=== PATIENT | male | born 1930 | race African-American/Black ===

== ENCOUNTER 2018-12-12 07:25 | Inpatient (IN) | payer MEDICARE ==
[~2018-12-12] VITALS: Ht 175.3 cm; Wt 73.5 kg
[2018-12-12] VITALS (7 sets, daily range): BP systolic 111–140; BP diastolic 56–66
[~2018-12-12 07:25] MED LIST: CLOP75TA16; ESOM40VI; FERR-35; [UNRECOGNIZED DRUG - CODE]
[2018-12-12 08:22] LABS: BASOPHILS % 0.7 % (0.0-2.0); EOSINOPHILS % 2.1 % (0.0-5.0); HEMATOCRIT. 30.4 % (42.0-52.0); HEMOGLOBIN. 10.1 g/dL (14.0-18.0); MEAN CORPUSCULAR HEMOGLOBIN 30.6 pg (28.0-32.0); MEAN CORPUSCULAR VOLUME 92.5 fL (80.0-94.0); MEAN PLATELET VOLUME 8.2 fl (7.4-10.4); MONOCYTES % 7.4 % (2.0-8.0); NEUTROPHILS % 64.8 % (40.0-76.0); PLATELET 233 x1000/uL (130-400); RED BLOOD CELL COUNT 3.29 mill/uL (4.7-6.1); RED CELL DISTRIBUTION WIDTH 14.5 % (11.6-14.6)
[2018-12-12 08:28] LABS: CHLORIDE 108 mEq/L (98-107)
[2018-12-12] MEDS ORDERED: MAGNESIUM CITRATE 300ML SOLUTION PO ONE (08:45)
[2018-12-12] MEDS ORDERED: ASPIRIN 325MG EC TABLET PO ONE (09:15)
[2018-12-12] MEDS ORDERED: SODIUM CHLORIDE 0.45% 1,000 ML IV ONE (09:45)
[2018-12-12] MEDS ORDERED: LIDOCAINE HCL 1% 20ML VIAL (Pyxis) INJ ONE (11:34)
[2018-12-12] MEDS ORDERED: IODIXANOL 320MG/ML 100 ML BOTTLE IV ONE (11:34)
[2018-12-12] MEDS ORDERED: FENTANYL CITRATE/PF 50MCG/ML 2ML VIAL ONE (11:42)
[2018-12-12] MEDS ORDERED: MIDAZOLAM HCL 2 MG/2 ML VIAL ONE (11:42)
[2018-12-12] MEDS ORDERED: ATROPINE SULFATE 1MG/10ML SYR IV PRN (12:30)
[2018-12-12] MEDS ORDERED: ACETAMINOPHEN 325MG TABLET PO PRN ×2 (12:30→17:00)
[2018-12-12] MEDS ORDERED: ONDANSETRON HCL 4MG/2ML INJ IV PRN ×2 (12:30→17:00)
[2018-12-12] MEDS ORDERED: HEPARIN SODIUM 1,000 UNIT/1ML VIAL IV ONE (14:10)
[2018-12-12] MEDS ORDERED: NICARDIPINE 100MCG/ML 10ML VIAL (CATH LAB) IV ONE (14:15)
[2018-12-12] MEDS ORDERED: NITROGLYCERIN 50MCG/ML 10ML VIAL (CATH LAB) IV ONE (14:15)
[2018-12-12] MEDS: DEXT 5%/0.45% NACL 1000ML 1,000 ML IV SCH (16:46)
[2018-12-12] MEDS ORDERED: NA PHOS,M-B/NA PHOS,DI-BA ENEMA 118ML PR PRN (17:00)
[2018-12-12] MEDS ORDERED: DOCUSATE SODIUM 100MG CAPSULE PO PRN (17:00)
[2018-12-12] MEDS ORDERED: MAGNESIUM/ALUMINUM HYDROXIDE/SIMETHICONE 30ML UDC PO PRN (17:00)
[2018-12-12] MEDS ORDERED: LACTULOSE 20G/30ML UDC PO PRN (17:00)
[2018-12-12] MEDS ORDERED: CLONIDINE 0.1MG TABLET PO PRN (17:00)
[2018-12-12] MEDS: MULTIVITAMINS,THER W-MINERALS TABLET PO SCH (18:23)
[2018-12-12] MEDS ORDERED: SORBITOL 70% SOLN 30ML PO NR (18:45)
[2018-12-12] MEDS ORDERED: BISACODYL 10MG SUPP PR NR (18:45)
[2018-12-13] VITALS: BP 114/57
[2018-12-13 02:00] VITALS: BP 131/58
[2018-12-13] MEDS ORDERED: METO25TA6 MT (02:50)
[2018-12-13 04:00] VITALS: BP 114/55
[2018-12-13 06:00] VITALS: BP 124/56
[2018-12-13 07:04] LABS: BASOPHILS % 0.2 % (0.0-2.0); EOSINOPHILS % 1.1 % (0.0-5.0); HEMATOCRIT. 32.2 % (42.0-52.0); HEMOGLOBIN. 10.8 g/dL (14.0-18.0); LYMPHOCYTES % 15.5 % (20.0-50.0); MEAN CORPUSCULAR HEMOGLOBIN 31.2 pg (28.0-32.0); MEAN CORPUSCULAR VOLUME 92.6 fL (80.0-94.0); MEAN PLATELET VOLUME 7.7 fl (7.4-10.4); MONOCYTES % 6.3 % (2.0-8.0); NEUTROPHILS % 76.9 % (40.0-76.0); PLATELET 216 x1000/uL (130-400); RED BLOOD CELL COUNT 3.48 mill/uL (4.7-6.1); RED CELL DISTRIBUTION WIDTH 14.3 % (11.6-14.6)
[2018-12-13] MEDS: DEXT 5%/0.45% NACL 1000ML 1,000 ML IV SCH (07:09)
[2018-12-13 07:46] LABS: CHLORIDE 110 mEq/L (98-107)
[2018-12-13] MEDS: MULTIVITAMINS,THER W-MINERALS TABLET PO SCH (07:48)
[2018-12-13] MEDS ORDERED: ASPIRIN 325MG TABLET PO SCH (09:00)
[2018-12-13 10:50] VITALS: BP 124/56
== END 2018-12-13 13:16 | disposition home health service (06) | DRG 287 ==
LOC: ER 07:49 → 3WST 09:01 → EDBEDREQ 09:04
PROVIDERS: ADMIT Hospitalist; ATTEND Hospitalist
PROC: 4A023N7 Measurement of Cardiac Sampling and Pressure, Left Heart, Percutaneous Approach (ICD-10-PCS; principal; 2018-12-12)
PROC: B2111ZZ Fluoroscopy of Multiple Coronary Arteries using Low Osmolar Contrast (ICD-10-PCS; 2018-12-12)
PROC: B2151ZZ Fluoroscopy of Left Heart using Low Osmolar Contrast (ICD-10-PCS; 2018-12-12)
DX: I25.110 Atherosclerotic heart disease of native coronary artery with unstable angina pectoris (principal); E87.0 Hyperosmolality and hypernatremia; I69.354 Hemiplegia and hemiparesis following cerebral infarction affecting left non-dominant side; R07.89 Other chest pain; D63.8 Anemia in other chronic diseases classified elsewhere; F03.90 Unspecified dementia, unspecified severity, without behavioral disturbance, psychotic disturbance, mood disturbance, and anxiety; I10 Essential (primary) hypertension; K56.41 Fecal impaction; I25.2 Old myocardial infarction; I69.320 Aphasia following cerebral infarction
CPT/HCPCS: 36415; 71045; 74018; 74176; 80048; 83880; 84484; 93005; 93306; 93458; 93970; 97162; 99285; C1769; C1893; J1644; J2250; J3010; J3490; Q9967

== ENCOUNTER 2019-09-06 12:53 | Emergency (ER) | payer MEDICARE ==
[~2019-09-06] VITALS: Ht 175.3 cm; Wt 77.0 kg
[~2019-09-06 12:53] MED LIST changes: +ASPI-1158 PO; -CLOP75TA16; +CLOP75TA4; +METO25TA6 MT
[2019-09-06] MEDS: SODIUM CHLORIDE 0.9% 1,000 ML IV ONE (13:23)
[2019-09-06 14:58] LABS: CHLORIDE 111 mEq/L (98-107)
[2019-09-06 15:00] LABS: PARTIAL THROMBOPLASTIN TIME 26.6 sec (23.4-31.0); PROTHROMBIN TIME 10.6 sec (9.6-11.0)
[2019-09-06 15:02] LABS: BASOPHILS % 0.5 % (0.0-2.0); EOSINOPHILS % 1.8 % (0.0-5.0); HEMOGLOBIN. 10.7 g/dL (14.0-18.0); LYMPHOCYTES % 28.6 % (20.0-50.0); MEAN CORPUSCULAR HEMOGLOBIN 30.6 pg (28.0-32.0); MEAN CORPUSCULAR VOLUME 91.5 fL (80.0-94.0); MEAN PLATELET VOLUME 7.3 fl (7.4-10.4); MONOCYTES % 8.8 % (2.0-8.0); NEUTROPHILS % 60.3 % (40.0-76.0); PLATELET 208 x1000/uL (130-400); RED BLOOD CELL COUNT 3.49 mill/uL (4.7-6.1); RED CELL DISTRIBUTION WIDTH 13.9 % (11.6-14.6)
[2019-09-06 16:35] VITALS: BP 132/74
== END 2019-09-06 16:39 | disposition home or self-care (01) ==
LOC: ER 13:34
DX: T85.698A Other mechanical complication of other specified internal prosthetic devices, implants and grafts, initial encounter (principal); X58.XXXA Exposure to other specified factors, initial encounter; I48.91 Unspecified atrial fibrillation; F03.90 Unspecified dementia, unspecified severity, without behavioral disturbance, psychotic disturbance, mood disturbance, and anxiety; I10 Essential (primary) hypertension; Z86.73 Personal history of transient ischemic attack (TIA), and cerebral infarction without residual deficits; Z98.890 Other specified postprocedural states; Z79.82 Long term (current) use of aspirin; Z79.899 Other long term (current) drug therapy
CPT/HCPCS: 36415; 71045; 80053; 83735; 83880; 84484; 85025; 85610; 85730; 93005; 99284; J7030

== ENCOUNTER 2019-11-13 05:59 | Inpatient (IN) | payer MEDICARE ==
[~2019-11-13] VITALS: Ht 172.7 cm; Wt 72.1 kg
[2019-11-13 06:47] LABS: BASOPHILS % 0.5 % (0.0-2.0); EOSINOPHILS % 0.2 % (0.0-5.0); HEMATOCRIT. 30.6 % (42.0-52.0); HEMOGLOBIN. 10.3 g/dL (14.0-18.0); MEAN CORPUSCULAR VOLUME 92.1 fL (80.0-94.0); MEAN PLATELET VOLUME 8.3 fl (7.4-10.4); MONOCYTES % 6.3 % (2.0-8.0); PLATELET 240 x1000/uL (130-400); RED BLOOD CELL COUNT 3.32 mill/uL (4.7-6.1); RED CELL DISTRIBUTION WIDTH 14.8 % (11.6-14.6)
[2019-11-13 06:52] LABS: PROTHROMBIN TIME 10.6 sec (9.6-11.0)
[2019-11-13 06:53] LABS: CHLORIDE 108 mEq/L (98-107)
[2019-11-13 06:59] LABS: ETHANOL BLOOD < 10 mg/dL
[2019-11-13 07:01] LABS: LDL CHOLESTEROL 93 mg/dL (5-100)
[2019-11-13] MEDS ORDERED: ASPIRIN 81MG TABLET PO ONE (07:15)
[2019-11-13] MEDS ORDERED: ONDANSETRON HCL 4MG/2ML INJ IV PRN (13:45)
[2019-11-13] MEDS ORDERED: ACETAMINOPHEN 325MG TABLET PO PRN (13:45)
[2019-11-13 14:41] LABS: CLARITY URINE CLEAR (CLEAR); COLOR URINE YELLOW (YELLOW); KETONES URINE NEGATIVE (NEGATIVE); LEUKOCYTE ESTERASE URINE NEGATIVE (NEGATIVE); NITRITE URINE NEGATIVE (NEGATIVE); OCCULT BLOOD URINE NEGATIVE (NEGATIVE); PROTEIN URINE NEGATIVE (NEGATIVE); UROBILINOGEN URINE 0.2 E.U./dL (0.2-1.0)
[2019-11-13 14:49] LABS: *AMPHETAMINES SCREEN URINE NEGATIVE (NEGATIVE); *BARBITURATES SCREEN URINE NEGATIVE (NEGATIVE); *BENZODIAZEPINES SCREEN URINE NEGATIVE (NEGATIVE); *COCAINE SCREEN URINE NEGATIVE (NEGATIVE); METHADONE URINE SCREEN NEGATIVE (NEGATIVE)
[2019-11-13 14:50] LABS: CANNABINOID URINE SCREEN NEGATIVE (NEGATIVE); OPIATES URINE SCREEN NEGATIVE (NEGATIVE); PHENCYCLIDINE URINE SCREEN NEGATIVE (NEGATIVE)
[2019-11-13 15:45] LABS: FOLIC ACID (FOLATE) SERUM 14.8 ng/mL (>5.38); T4 FREE 0.88 ng/dL (0.76-1.46)
[2019-11-13 17:00] VITALS: BP 110/73
[2019-11-13 17:09] VITALS: BP 139/37
[2019-11-13 20:00] VITALS: BP 119/57
[2019-11-13] MEDS: ATORVASTATIN CALCIUM 10MG TABLET PO SCH (20:46)
[2019-11-13] MEDS: HEPARIN 5000 UNITS/ML VIAL SUBCUT SCH (20:46)
[2019-11-13 22:00] VITALS: BP 121/58
[2019-11-14] VITALS (12 sets, daily range): BP systolic 91–128; BP diastolic 29–73
[2019-11-14 07:24] LABS: CHLORIDE 106 mEq/L (98-107)
[2019-11-14 07:27] LABS: BASOPHILS % 0.5 % (0.0-2.0); EOSINOPHILS % 0.5 % (0.0-5.0); HEMATOCRIT. 34.2 % (42.0-52.0); HEMOGLOBIN. 11.4 g/dL (14.0-18.0); LYMPHOCYTES % 21.6 % (20.0-50.0); MEAN CORPUSCULAR HEMOGLOBIN 30.8 pg (28.0-32.0); MEAN CORPUSCULAR VOLUME 92.4 fL (80.0-94.0); MEAN PLATELET VOLUME 7.7 fl (7.4-10.4); MONOCYTES % 6.6 % (2.0-8.0); NEUTROPHILS % 70.8 % (40.0-76.0); PLATELET 233 x1000/uL (130-400); RED CELL DISTRIBUTION WIDTH 14.7 % (11.6-14.6)
[2019-11-14] MEDS: ASPIRIN 81MG EC TABLET PO SCH (08:12)
[2019-11-14] MEDS: HEPARIN 5000 UNITS/ML VIAL SUBCUT SCH ×2 (08:13→21:35)
[2019-11-14] MEDS: CLOPIDOGREL 75MG TABLET PO SCH (08:17)
[2019-11-14] MEDS ORDERED: MAGNESIUM HYDROXIDE 400MG/5ML 30ML UDC PO PRN (13:45)
[2019-11-14] MEDS ORDERED: SENNOSIDES/DOCUSATE SOD 8.6/50MG TABLET PO PRN (13:45)
[2019-11-14] MEDS ORDERED: BISACODYL 10MG SUPP PR PRN (13:45)
[2019-11-14] MEDS: DOCUSATE SODIUM 250MG CAPSULE PO SCH (14:57)
[2019-11-14] MEDS ORDERED: SODIUM CHLORIDE 0.9% 1,000 ML IV SCH (15:30)
[2019-11-14] MEDS ORDERED: MAGNESIUM CITRATE 300ML SOLUTION PO SCH (16:00)
[2019-11-14] MEDS ORDERED: MINERAL OIL ENEMA 133ML PR SCH (16:00)
[2019-11-14] MEDS: ATORVASTATIN CALCIUM 10MG TABLET PO SCH (21:35)
[2019-11-15] VITALS (10 sets, daily range): BP systolic 95–155; BP diastolic 38–69
[2019-11-15 07:17] LABS: BASOPHILS % 0.5 % (0.0-2.0); EOSINOPHILS % 0.3 % (0.0-5.0); HEMATOCRIT. 32.8 % (42.0-52.0); LYMPHOCYTES % 23.1 % (20.0-50.0); MEAN CORPUSCULAR HEMOGLOBIN 30.9 pg (28.0-32.0); MEAN CORPUSCULAR VOLUME 92.2 fL (80.0-94.0); MEAN PLATELET VOLUME 8.3 fl (7.4-10.4); NEUTROPHILS % 69.1 % (40.0-76.0); PLATELET 239 x1000/uL (130-400); RED BLOOD CELL COUNT 3.56 mill/uL (4.7-6.1); RED CELL DISTRIBUTION WIDTH 14.5 % (11.6-14.6)
[2019-11-15 08:15] LABS: CHLORIDE 107 mEq/L (98-107)
[2019-11-15] MEDS: ASPIRIN 81MG EC TABLET PO SCH (09:10)
[2019-11-15] MEDS: CLOPIDOGREL 75MG TABLET PO SCH (09:10)
[2019-11-15] MEDS: DOCUSATE SODIUM 250MG CAPSULE PO SCH (09:10)
[2019-11-15] MEDS: HEPARIN 5000 UNITS/ML VIAL SUBCUT SCH (09:10)
[2019-11-15] MEDS ORDERED: METO25TA6 MT (12:31)
== END 2019-11-15 14:15 | disposition home or self-care (01) | DRG 683 ==
LOC: ER 05:59 → 5EST 08:04 → EDBEDREQ 08:31 → ENRESERV 15:55 → EDBEDREQ 16:34
PROVIDERS: ADMIT Family Medicine Adult Medicine; ATTEND Family Medicine Adult Medicine
DX: N17.9 Acute kidney failure, unspecified (principal); G45.9 Transient cerebral ischemic attack, unspecified; G57.92 Unspecified mononeuropathy of left lower limb; M19.012 Primary osteoarthritis, left shoulder; M48.02 Spinal stenosis, cervical region; I11.9 Hypertensive heart disease without heart failure; E78.00 Pure hypercholesterolemia, unspecified; F03.90 Unspecified dementia, unspecified severity, without behavioral disturbance, psychotic disturbance, mood disturbance, and anxiety; G62.9 Polyneuropathy, unspecified; I25.10 Atherosclerotic heart disease of native coronary artery without angina pectoris; I48.0 Paroxysmal atrial fibrillation; D64.9 Anemia, unspecified; F41.9 Anxiety disorder, unspecified; R00.1 Bradycardia, unspecified; R26.9 Unspecified abnormalities of gait and mobility; K59.00 Constipation, unspecified; Z79.02 Long term (current) use of antithrombotics/antiplatelets; Z79.899 Other long term (current) drug therapy; Z82.3 Family history of stroke; Z82.49 Family history of ischemic heart disease and other diseases of the circulatory system; Z79.82 Long term (current) use of aspirin; Z86.73 Personal history of transient ischemic attack (TIA), and cerebral infarction without residual deficits
CPT/HCPCS: 36415; 70544; 70551; 71045; 72141; 73221; 74018; 80048; 80053; 80061; 80305; 80320; 81003; 82607; 82746; 82962; 83036; 83721; 83735; 84439; 84443; 84481; 84484; 85025; 93005; 93306; 93880; 96360; 96372; 97161; 97166; 99291; C1893; J1644; G0480

== ENCOUNTER 2020-07-28 21:14 | Emergency (ER) | payer MEDICARE ==
[~2020-07-28] VITALS: Ht 175.3 cm; Wt 66.0 kg
[~2020-07-28 21:14] MED LIST changes: -METO25TA6 MT
[2020-07-28 22:14] LABS: BASOPHILS % 1.4 % (0.0-2.0); EOSINOPHILS % 2.4 % (0.0-5.0); HEMATOCRIT. 32.2 % (42.0-52.0); HEMOGLOBIN. 10.8 g/dL (14.0-18.0); LYMPHOCYTES % 28.8 % (20.0-50.0); MEAN CORPUSCULAR HEMOGLOBIN 31.1 pg (28.0-32.0); MEAN CORPUSCULAR VOLUME 92.2 fL (80.0-94.0); MEAN PLATELET VOLUME 8.4 fl (7.4-10.4); MONOCYTES % 10.1 % (2.0-8.0); NEUTROPHILS % 57.3 % (40.0-76.0); PLATELET 245 x1000/uL (130-400); RED BLOOD CELL COUNT 3.49 mill/uL (4.7-6.1)
[2020-07-28 22:21] LABS: CHLORIDE 106 mEq/L (98-107)
[2020-07-29] VITALS: BP 100/52
[2020-07-29] MEDS ORDERED: LITH150C PO (23:51)
== END 2020-07-29 | disposition left against medical advice (07) ==
LOC: ER 21:14
DX: F41.9 Anxiety disorder, unspecified (principal); Z86.73 Personal history of transient ischemic attack (TIA), and cerebral infarction without residual deficits; Z79.82 Long term (current) use of aspirin
CPT/HCPCS: 36415; 71045; 80053; 83880; 84484; 85025; 93005; 99285

== ENCOUNTER 2020-10-04 23:53 | Emergency (ER) | payer MEDICARE ==
[~2020-10-04] VITALS: Ht 175.3 cm; Wt 66.0 kg
[~2020-10-04 23:53] MED LIST changes: +ALPR-339 PO; -CLOP75TA4; +CLOP75TA4 PO; -ESOM40VI; -FERR-35; +FERR325T6 PO; +OMEP40CA12 PO; +PREG150C PO; -[UNRECOGNIZED DRUG - CODE]
[2020-10-05 03:27] LABS: BASOPHILS % 0.4 % (0.0-2.0); EOSINOPHILS % 0.1 % (0.0-5.0); HEMATOCRIT. 30.7 % (42.0-52.0); HEMOGLOBIN. 10.3 g/dL (14.0-18.0); LYMPHOCYTES % 20.3 % (20.0-50.0); MEAN CORPUSCULAR HEMOGLOBIN 31.2 pg (28.0-32.0); MEAN CORPUSCULAR VOLUME 93.3 fL (80.0-94.0); MEAN PLATELET VOLUME 7.2 fl (7.4-10.4); MONOCYTES % 6.8 % (2.0-8.0); NEUTROPHILS % 72.4 % (40.0-76.0); PLATELET 231 x1000/uL (130-400); RED BLOOD CELL COUNT 3.29 mill/uL (4.7-6.1); RED CELL DISTRIBUTION WIDTH 14.8 % (11.6-14.6)
[2020-10-05 03:29] LABS: CHLORIDE 113 mEq/L (98-107)
[2020-10-05 04:31] VITALS: BP 120/81
== END 2020-10-05 04:33 | disposition home or self-care (01) ==
LOC: ER 23:53
DX: R06.02 Shortness of breath (principal); I11.0 Hypertensive heart disease with heart failure; I50.9 Heart failure, unspecified; I48.91 Unspecified atrial fibrillation; Z79.899 Other long term (current) drug therapy
CPT/HCPCS: 36415; 71045; 80053; 83605; 83880; 84145; 84484; 85025; 85379; 93005; 99285

== ENCOUNTER 2020-10-06 07:31 | Emergency (ER) | payer MEDICARE ==
[~2020-10-06] VITALS: Ht 175.3 cm; Wt 64.1 kg
[2020-10-06 09:12] LABS: BASOPHILS % 0.6 % (0.0-2.0); EOSINOPHILS % 0.2 % (0.0-5.0); HEMATOCRIT. 30.8 % (42.0-52.0); HEMOGLOBIN. 10.5 g/dL (14.0-18.0); LYMPHOCYTES % 17.7 % (20.0-50.0); MEAN CORPUSCULAR HEMOGLOBIN 31.7 pg (28.0-32.0); MEAN CORPUSCULAR VOLUME 93.3 fL (80.0-94.0); MEAN PLATELET VOLUME 7.9 fl (7.4-10.4); MONOCYTES % 7.2 % (2.0-8.0); NEUTROPHILS % 74.3 % (40.0-76.0); PLATELET 256 x1000/uL (130-400); RED CELL DISTRIBUTION WIDTH 14.6 % (11.6-14.6)
[2020-10-06 09:20] LABS: CHLORIDE 112 mEq/L (98-107)
[2020-10-06 09:20] LABS: BG BASE EXCESS -5.6 mmol/L (-2.0-2.0); BG CARBOXYHEMOGLOBIN 0.3 % (0.5-1.5); BG DEOXYHEMOGLOBIN 2.7 % (0.0-5.0); BG HCO3 ACT 18.7 mmol/L (22.0-26.0); BG METHEMOGLOBIN 0.2 % (0.0-1.5); BG OXYGEN SATURATION 97.3 % (92.0-98.5); BG OXYHEMOGLOBIN 96.8 % (94.0-97.0); BG PCO2 32.4 mmHg (35.0-45.0); BG PO2 102.5 mmHg (75.0-100.0); BG SAMPLE SITE RIGHT RADIAL; BG TOTAL HEMOGLOBIN 10.4 g/dL (12.0-18.0); BG VENT MODE ROOM AIR
[2020-10-06 11:29] VITALS: BP 135/66
== END 2020-10-06 11:29 | disposition home or self-care (01) ==
LOC: ER 07:31
DX: R06.00 Dyspnea, unspecified (principal); I50.9 Heart failure, unspecified; I48.91 Unspecified atrial fibrillation; Z79.899 Other long term (current) drug therapy; Z79.82 Long term (current) use of aspirin
CPT/HCPCS: 36415; 36600; 71045; 72100; 80053; 82375; 82805; 82962; 83880; 84484; 85025; 93005; 99285

== ENCOUNTER 2020-12-27 17:07 | Emergency (ER) | payer MEDICARE ==
[~2020-12-27] VITALS: Ht 175.3 cm; Wt 68.0 kg
[~2020-12-27 17:07] MED LIST changes: -ASPI-1158 PO; +ASPI-1406 PO; +CLOP-31 PO; -CLOP75TA4 PO
[2020-12-27] MEDS ORDERED: KETOROLAC 30MG/ML VIAL IV STA (18:10)
[2020-12-27] MEDS ORDERED: SODIUM CHLORIDE 0.9% 1,000 ML IV ONE (18:15)
[2020-12-27 18:47] LABS: BASOPHILS % 0.5 % (0.0-2.0); HEMATOCRIT. 26.4 % (42.0-52.0); HEMOGLOBIN. 8.9 g/dL (14.0-18.0); LYMPHOCYTES % 23.4 % (20.0-50.0); MEAN CORPUSCULAR HEMOGLOBIN 31.9 pg (28.0-32.0); MEAN CORPUSCULAR VOLUME 94.7 fL (80.0-94.0); MEAN PLATELET VOLUME 6.7 fl (7.4-10.4); MONOCYTES % 8.3 % (2.0-8.0); NEUTROPHILS % 66.8 % (40.0-76.0); PLATELET 334 x1000/uL (130-400); RED BLOOD CELL COUNT 2.79 mill/uL (4.7-6.1)
[2020-12-27 18:49] LABS: CHLORIDE 110 mEq/L (98-107)
[2020-12-27] MEDS ORDERED: TOPUD MT (19:42)
[2020-12-27 19:58] VITALS: BP 118/48
== END 2020-12-27 20:00 | disposition home or self-care (01) ==
LOC: ER 17:07
DX: R07.81 Pleurodynia (principal); M79.672 Pain in left foot; R06.02 Shortness of breath; Z86.73 Personal history of transient ischemic attack (TIA), and cerebral infarction without residual deficits; Z79.82 Long term (current) use of aspirin; Z79.899 Other long term (current) drug therapy
CPT/HCPCS: 36415; 71045; 71250; 73630; 80053; 83880; 84484; 85025; 93005; 96361; 96374; 99285; J1885; J7030

== ENCOUNTER → 2021-01-12 | Outpatient (CLI) | payer MEDICARE ==
[~2021-01-12] MED LIST changes: +AZIT250T12 PO; +DEXL60CA3 MT; +DULO30CA2 PO; +FENTANYL CITRATE/PF 50MCG/ML 5ML VIAL ONE; +GABA-529 PO; +MIDAZOLAM HCL 5 MG/5 ML VIAL ONE; +MONT10TA21 PO; +TOPUD MT
== END | disposition home or self-care (01) ==
LOC: RAD 07:11
PROVIDERS: ATTEND Internal Medicine Clinical Cardiac Electrophysiology
DX: R55 Syncope and collapse (principal); R00.0 Tachycardia, unspecified
CPT/HCPCS: 71111

== ENCOUNTER → 2021-01-14 | Day surgery (SDC) | payer MEDICARE ==
[~2021-01-14] MED LIST changes: +CEFAZOLIN SODIUM 1000MG/VIAL ONE; +DIPHENHYDRAMINE 50MG/ML VIAL ONE; +EPHEDRINE SULFATE 50MG/ML VIAL ONE; +FENTANYL CITRATE/PF 50MCG/ML 2ML VIAL ONE; +LIDOCAINE HCL 1% 20ML VIAL (Pyxis) INJ ONE; +MIDAZOLAM HCL 2 MG/2 ML VIAL ONE; +SODIUM CHLORIDE 0.9% 10ML VIAL ONE
[2021-01-14 08:00] LABS: BASOPHILS % 0.8 % (0.0-2.0); EOSINOPHILS % 0.6 % (0.0-5.0); HEMATOCRIT. 31.1 % (42.0-52.0); HEMOGLOBIN. 10.3 g/dL (14.0-18.0); LYMPHOCYTES % 15.4 % (20.0-50.0); MEAN CORPUSCULAR VOLUME 93.3 fL (80.0-94.0); MEAN PLATELET VOLUME 7.9 fl (7.4-10.4); MONOCYTES % 6.7 % (2.0-8.0); NEUTROPHILS % 76.5 % (40.0-76.0); PLATELET 224 x1000/uL (130-400); RED BLOOD CELL COUNT 3.33 mill/uL (4.7-6.1); RED CELL DISTRIBUTION WIDTH 14.8 % (11.6-14.6)
[2021-01-14 08:05] LABS: CHLORIDE 110 mEq/L (98-107)
[2021-01-14 08:10] LABS: PROTHROMBIN TIME 10.3 sec (9.6-11.0)
== END | disposition home or self-care (01) ==
LOC: CCL 06:00 → EDSTATUS 15:06
PROVIDERS: ATTEND Internal Medicine Clinical Cardiac Electrophysiology
DX: R55 Syncope and collapse (principal); I47.2 Ventricular tachycardia; I11.0 Hypertensive heart disease with heart failure; I50.22 Chronic systolic (congestive) heart failure; I42.8 Other cardiomyopathies; I48.91 Unspecified atrial fibrillation; Z79.82 Long term (current) use of aspirin; Z79.899 Other long term (current) drug therapy; Z98.890 Other specified postprocedural states; Z82.49 Family history of ischemic heart disease and other diseases of the circulatory system; Z88.8 Allergy status to other drugs, medicaments and biological substances
CPT/HCPCS: 36415; 80053; 85025; 85610; 93620; C1730; C1893; J0690; J1200; J1644; J2250; J3010; J3490; J7040; C1731

== ENCOUNTER 2021-03-06 09:10 | Emergency (ER) | payer MEDICARE ==
[~2021-03-06] VITALS: Ht 175.3 cm; Wt 66.0 kg
[~2021-03-06 09:10] MED LIST changes: -ASPI-1406 PO; -CEFAZOLIN SODIUM 1000MG/VIAL ONE; -CLOP-31 PO; -DIPHENHYDRAMINE 50MG/ML VIAL ONE; -EPHEDRINE SULFATE 50MG/ML VIAL ONE; -FENTANYL CITRATE/PF 50MCG/ML 2ML VIAL ONE; -FENTANYL CITRATE/PF 50MCG/ML 5ML VIAL ONE; -LIDOCAINE HCL 1% 20ML VIAL (Pyxis) INJ ONE; -MIDAZOLAM HCL 2 MG/2 ML VIAL ONE; -MIDAZOLAM HCL 5 MG/5 ML VIAL ONE; -SODIUM CHLORIDE 0.9% 10ML VIAL ONE
[2021-03-06 11:36] LABS: BASOPHILS % 0.7 % (0.0-2.0); EOSINOPHILS % 0.9 % (0.0-5.0); HEMATOCRIT. 33.1 % (42.0-52.0); HEMOGLOBIN. 11.2 g/dL (14.0-18.0); MEAN CORPUSCULAR HEMOGLOBIN 30.7 pg (28.0-32.0); MEAN CORPUSCULAR VOLUME 90.7 fL (80.0-94.0); MEAN PLATELET VOLUME 7.8 fl (7.4-10.4); MONOCYTES % 8.5 % (2.0-8.0); NEUTROPHILS % 63.9 % (40.0-76.0); PLATELET 232 x1000/uL (130-400); RED BLOOD CELL COUNT 3.65 mill/uL (4.7-6.1); RED CELL DISTRIBUTION WIDTH 16.2 % (11.6-14.6)
[2021-03-06 11:43] LABS: CHLORIDE 105 mEq/L (98-107)
[2021-03-06 12:24] LABS: CLARITY URINE CLEAR (CLEAR); COLOR URINE YELLOW (YELLOW); KETONES URINE NEGATIVE (NEGATIVE); LEUKOCYTE ESTERASE URINE NEGATIVE (NEGATIVE); NITRITE URINE NEGATIVE (NEGATIVE); OCCULT BLOOD URINE NEGATIVE (NEGATIVE); PH URINE 6.5 (4.5-8.0); PROTEIN URINE NEGATIVE (NEGATIVE); SPECIFIC GRAVITY URINE 1.004 (1.005-1.030); UROBILINOGEN URINE 0.2 E.U./dL (0.2-1.0)
[2021-03-06] MEDS ORDERED: SENN8.6T21 MT (12:51)
[2021-03-06] MEDS ORDERED: TAMS-11 MT (12:51)
[2021-03-06] MEDS ORDERED: POLY17PO3 MT (12:51)
[2021-03-06 13:10] VITALS: BP 120/80
== END 2021-03-06 13:36 | disposition home or self-care (01) ==
LOC: ER 09:10
DX: N40.0 Benign prostatic hyperplasia without lower urinary tract symptoms (principal); K59.00 Constipation, unspecified; I51.9 Heart disease, unspecified; Z86.73 Personal history of transient ischemic attack (TIA), and cerebral infarction without residual deficits; Z95.0 Presence of cardiac pacemaker
CPT/HCPCS: 36415; 71045; 74176; 80053; 81003; 85025; 93005; 99285